=== PATIENT | male | born 1995 | race African-American/Black ===

== ENCOUNTER 2021-01-22 09:47 | Day surgery (SDC) | payer MEDICAID ==
[~2021-01-22] VITALS: Ht 180.3 cm; Wt 100.0 kg
[~2021-01-22 09:47] MED LIST: HYDR30CR79 TOP
[2021-01-22] MEDS ORDERED: fentaNYL/PF 50MCG/1 ML 2ML syringe ONE (09:53)
[2021-01-22] MEDS ORDERED: MIDAZolam 1 MG/ML 5ML VIAL ONE (09:54)
[2021-01-22] MEDS ORDERED: LIDOcaine Viscous 15ml cup ONE (09:55)
[2021-01-22 09:59] VITALS: BP 118/74
[2021-01-22] MEDS ORDERED: NO HOME MEDS (10:06)
[2021-01-22 11:05] VITALS: BP 128/69
[2021-01-22 11:15] VITALS: BP 110/73
[2021-01-22 11:25] VITALS: BP 108/72
[2021-01-22 11:35] VITALS: BP 122/78
== END 2021-01-22 11:50 | disposition home or self-care (01) ==
LOC: GI LAB 09:47
PROVIDERS: ATTEND Internal Medicine Gastroenterology
DX: R12 Heartburn (principal); R10.10 Upper abdominal pain, unspecified; K21.00 Gastro-esophageal reflux disease with esophagitis, without bleeding; F17.210 Nicotine dependence, cigarettes, uncomplicated
CPT/HCPCS: 43239; 99152; J2250; J3010; J7040; A4620